=== PATIENT | male | born 1945 | race Caucasian/White ===

== ENCOUNTER 2017-03-06 06:37 | Observation (INO) | payer BC ==
[~2017-03-06] VITALS: Ht 172.7 cm; Wt 93.4 kg
[2017-03-06] VITALS (19 sets, daily range): BP systolic 105–180; BP diastolic 57–103; PULSE 52–74; RESP 11–26; Ht 172.7 cm; Wt 93.4 kg
[2017-03-06] MEDS ORDERED: LOSA50TA6 PO (07:37)
[2017-03-06] MEDS ORDERED: ISOS30TA5 PO (07:37)
[2017-03-06] MEDS ORDERED: CARV6.2579 PO (07:38)
[2017-03-06] MEDS ORDERED: TAMS0.4C2 PO (07:39)
[2017-03-06] MEDS ORDERED: ALLO100T PO (07:39)
[2017-03-06] MEDS ORDERED: GLIM2TAB PO (07:39)
[2017-03-06] MEDS ORDERED: ASPI-664 PO (07:40)
[2017-03-06] MEDS ORDERED: ATOR20TA38 PO (07:40)
[2017-03-06] MEDS ORDERED: SOD CHLORIDE 0.9% 1,000 ML IV SCH ×2 (08:30→10:28)
[2017-03-06 08:38] LABS: ADD SCAN DIFF NO
[2017-03-06 08:45] LABS: BASOPHIL # 0.1 10^3/ul (0.0-0.1); BASOPHILS % 0.7 % (0.0-2.0); EOSINOPHILS # 0.2 10^3/ul (0.0-0.5); EOSINOPHILS % 3.2 % (0.0-7.0); HEMATOCRIT 41.5 % (42.0-52.0); HEMOGLOBIN 13.6 g/dl (14.0-18.0); LYMPHOCYTES # 1.8 10^3/ul (0.8-2.9); LYMPHOCYTES % 24.3 % (15.0-51.0); MEAN CORPUSCULAR HEMOGLOBIN 29.9 pg (29.0-33.0); MEAN CORPUSCULAR HGB CONC 32.8 g/dl (32.0-37.0); MEAN CORPUSCULAR VOLUME 91.2 fl (82.0-101.0); MEAN PLATELET VOLUME 11.3 fl (7.4-10.4); MONOCYTE # 0.6 10^3/ul (0.3-0.9); MONOCYTES % 7.4 % (0.0-11.0); NEUTROPHIL # 4.7 10^3/ul (1.6-7.5); NEUTROPHILS % 63.7 % (39.0-77.0); PLATELET COUNT 160 10^3/UL (140-415); RED BLOOD COUNT 4.55 10^6/ul (4.70-6.10); RED CELL DISTRIBUTION WIDTH 12.5 % (11.5-14.5); WHITE BLOOD COUNT 7.4 10^3/ul (4.8-10.8)
[2017-03-06] MEDS ORDERED: HEPARIN 1000 UNITS/ML 10 ML INJ ONE (08:54)
[2017-03-06] MEDS ORDERED: HEPARIN 1000 UNITS/NS (A-LINE) 1,000 ML ONE (08:54)
[2017-03-06] MEDS ORDERED: IODIXANOL LOCM 100 ML BTL ONE ×2 (08:54→10:23)
[2017-03-06] MEDS ORDERED: VERAPAMIL 5 MG INJ ONE (08:54)
[2017-03-06] MEDS ORDERED: LIDOCAINE 1% (MDV) 20 ML INJ ONE (08:54)
[2017-03-06] MEDS ORDERED: FENTAnyl 50 MCG/ML VIAL ONE (08:55)
[2017-03-06] MEDS ORDERED: NITROGLYCERIN (IC) 100 MCG/ML INJ ONE (08:55)
[2017-03-06] MEDS ORDERED: MIDAZOLAM 1 MG/ML 2 ML INJ ONE (08:55)
--- NOTE | 2017-03-06 09:07 | RADRPT ---
PROCEDURE: XR Chest. CLINICAL INDICATION: Chest pain , preoperative TECHNIQUE: Single frontal view of the chest was obtained COMPARISON: None FINDINGS: The heart is enlarged. The thoracic aorta is calcified. The lungs are clear. There is no pleural effusion or pneumothorax. RPTAT: AA IMPRESSION: Mild cardiomegaly. Calcified aorta consistent with atherosclerotic disease. .Gerson Snell MD, MD Date Time Electronically viewed and signed by .Gerson Snell MD, on 03/06/2017 09:07 .S/
[2017-03-06 09:10] LABS: INR 1.04; PROTIME 13.6 Sec (12.2-14.2); PT RATIO 1.1
[2017-03-06 09:11] LABS: PARTIAL THROMBOPLASTIN TIME 25.1 Sec (25.0-35.0)
[2017-03-06 09:14] LABS: ALBUMIN 4.2 g/dl (3.3-4.9); ALBUMIN/GLOBULIN RATIO 1.68; BILIRUBIN,INDIRECT 0.4 mg/dl (0-1.1); BILIRUBIN,TOTAL 0.4 mg/dl (0.2-1.3); TOTAL PROTEIN 6.7 g/dl (6.1-8.1)
[2017-03-06 09:15] LABS: CREATININE 0.93 mg/dl (0.61-1.24); POTASSIUM 3.9 mmol/L (3.5-5.1)
[2017-03-06 09:16] LABS: CALCIUM 9.4 mg/dl (8.4-10.2)
[2017-03-06] MEDS ORDERED: ASPIRIN 325 MG TAB ONE (10:23)
[2017-03-06] MEDS ORDERED: CLOPIDOGREL 300 MG TAB ONE (10:23)
[2017-03-06] MEDS ORDERED: ZOLPIDEM 5 MG TAB PO PRN (10:30)
[2017-03-06] MEDS ORDERED: morphine 2 MG INJ IV PRN (10:30)
[2017-03-06] MEDS ORDERED: ONDANSETRON 4 MG INJ IV PRN (10:30)
[2017-03-06] MEDS ORDERED: AL HYDROX/MG HYDROX/SIMETH 30 ML CUP PO PRN (10:30)
[2017-03-06] MEDS ORDERED: OXYCODONE/ACETAMINOPHEN (5/325) TAB PO PRN (10:30)
[2017-03-06] MEDS ORDERED: ACETAMINOPHEN 325 MG TAB PO PRN (10:30)
[2017-03-06] MEDS ORDERED: hydrALAzine 20 MG INJ IV PRN (11:00)
[2017-03-06] MEDS ORDERED: hydrALAzine 20 MG INJ ONE (11:02)
[2017-03-06] MEDS ORDERED: GLUCOSE GEL 15 GRAM TUBE BUCCAL PRN (11:30)
[2017-03-06] MEDS ORDERED: DEXTROSE 50% 50 ML SYRINGE IV PRN ×2 (11:30)
[2017-03-06] MEDS ORDERED: GLUCAGON 1 MG INJ IM PRN (11:30)
[2017-03-06] MEDS ORDERED: GLUCOSE GEL 15 GRAM TUBE PO PRN ×2 (11:30)
[2017-03-06] MEDS: INSULIN ASPART [NOVOLOG] 3 ML PEN SC SCH ×3 (13:28→21:42)
--- NOTE | 2017-03-06 16:38 | RADRPT ---
Vent Rate: 61 bpm RR Interval: 0 msec [place] Interval: 280 msec QRS Duration: 104 msec QT Interval: 406 msec QTC Interval: 408 msec P-R-T [place]: 66 - -5 - 42 degrees Sinus rhythm with 1st degree AV block Otherwise normal ECG Electronically Signed By: Blane Curiel [id number]
--- NOTE | 2017-03-06 16:39 | RADRPT ---
Vent Rate: 60 bpm RR Interval: 0 msec [place] Interval: 286 msec QRS Duration: 96 msec QT Interval: 424 msec QTC Interval: 424 msec P-R-T [place]: 57 - -6 - 45 degrees Sinus rhythm with 1st degree AV block Septal infarct , age undetermined Abnormal ECG Electronically Signed By: Blane Curiel [id number]
[2017-03-06] MEDS ORDERED: INSULIN ASPART [NOVOLOG] 3 ML PEN SC SCH (17:35)
[2017-03-06] MEDS ORDERED: ATORVASTATIN 20 MG TAB PO SCH (21:00)
[2017-03-06] MEDS ORDERED: TAMSULOSIN (SR) 0.4 MG CAP PO SCH (21:00)
[2017-03-07] VITALS (8 sets, daily range): BP systolic 111–143; BP diastolic 58–82; PULSE 68–74; RESP 18
[2017-03-07] MEDS ORDERED: ACCU-CHEK XX SCH (02:00)
[2017-03-07] MEDS: INSULIN ASPART [NOVOLOG] 3 ML PEN SC SCH ×3 (08:18→18:00)
[2017-03-07 08:35] LABS: ADD SCAN DIFF NO
[2017-03-07 08:45] LABS: BASOPHILS % 0.4 % (0.0-2.0); EOSINOPHILS # 0.2 10^3/ul (0.0-0.5); EOSINOPHILS % 2.7 % (0.0-7.0); HEMOGLOBIN 14.2 g/dl (14.0-18.0); LYMPHOCYTES # 0.9 10^3/ul (0.8-2.9); LYMPHOCYTES % 12.5 % (15.0-51.0); MEAN CORPUSCULAR HEMOGLOBIN 29.5 pg (29.0-33.0); MEAN CORPUSCULAR HGB CONC 32.3 g/dl (32.0-37.0); MEAN CORPUSCULAR VOLUME 91.5 fl (82.0-101.0); MEAN PLATELET VOLUME 11.4 fl (7.4-10.4); MONOCYTE # 0.8 10^3/ul (0.3-0.9); MONOCYTES % 10.3 % (0.0-11.0); NEUTROPHIL # 5.4 10^3/ul (1.6-7.5); NEUTROPHILS % 73.7 % (39.0-77.0); PLATELET COUNT 160 10^3/UL (140-415); RED BLOOD COUNT 4.81 10^6/ul (4.70-6.10); RED CELL DISTRIBUTION WIDTH 12.5 % (11.5-14.5); WHITE BLOOD COUNT 7.3 10^3/ul (4.8-10.8)
[2017-03-07] MEDS ORDERED: ASPIRIN (EC) 325 MG TAB PO SCH (09:00)
[2017-03-07] MEDS ORDERED: LOSARTAN 50 MG TAB PO SCH (09:00)
[2017-03-07] MEDS ORDERED: ISOSORBIDE MONONITRATE(SR)30 MG TAB PO SCH (09:00)
[2017-03-07] MEDS ORDERED: CLOPIDOGREL 75 MG TAB PO SCH (09:00)
[2017-03-07] MEDS ORDERED: ALLOPURINOL 100 MG TAB PO SCH (09:00)
[2017-03-07 09:18] LABS: CALCIUM 9.1 mg/dl (8.4-10.2); CREATININE 1.01 mg/dl (0.61-1.24); POTASSIUM 4.1 mmol/L (3.5-5.1)
--- NOTE | 2017-03-07 14:01 | RADRPT ---
Vent Rate: 75 bpm RR Interval: 0 msec [place] Interval: 292 msec QRS Duration: 96 msec QT Interval: 370 msec QTC Interval: 413 msec P-R-T [place]: 61 - 4 - 43 degrees Sinus rhythm with 1st degree AV block Septal infarct , age undetermined Abnormal ECG Electronically Signed By: Blane Curiel [id number]
--- NOTE | 2017-03-07 17:01 | CONS ---
Date/Time of Note Date/Time of Note DATE: 03/07/17 TIME: 16:57 Assessment/Plan Assessment/Plan Chief Complaint/Hosp Course IMP: 1.POD#1 s/p PTCa/stent x 1 to LAD with MAE 2.abnl cardiac stress test-prior to stent 3.HTN 5.HL 6.DM 7.chest pain/PHIPPS-prior to PTCA/stent REcc: -Tele -continue asa/plavix -Contineu imdur/losartan/coreg -Continue statin -D/C planning with outpatient f/u 2 weeks -prescription for asa 325 and plavix 75 mg daily Problems: Consultation Date/Type/Reason Admit Date/Time Mar 06, 2017 at 18:40 Initial Consult Date 03/06/2017 Type of Consultation: Cardiology Reason for Consultation angina s/p pTCA/stent to LAD Referring Provider: CATHIE ANDERSON MD Exam/Review of Systems Vital Signs Vitals Vital Signs Date Time Temp Pulse Resp B/P Pulse Ox O2 Delivery O2 Flow Rate FiO2 03/07/17 16:22 70 03/07/17 15:52 98.0 18 111/70 95 03/07/17 04:00 Room Air Intake and Output 03/06/17 03/06/17 03/07/17 15:00 23:00 07:00 Intake Total 300 ml 875 ml 720 ml Output Total 750 ml 300 ml Balance -450 ml 575 ml 720 ml Exam Review of Systems: CONSTITUTIONAL: No fevers, chills. PULMONARY: No sob CARDIOVASCULAR: No chest pain/palpitations GASTROINTESTINAL: No nausea/vomiting. GENITOURINARY: No hematuria/dysuria. MUSCULOSKELETAL: No myagias/arthalgias. PSYCHIATRIC: The patient denies depression. NEUROLOGIC: No weakness Constitutional: alert, oriented Psych: no complaints Head: normocephalic ENMT: mucosa pink and moist Neck: jvd (8 cm water), supple Respiratory: diminished breath sounds (at bases/B) Cardiovascular: regular rate and rhythm Gastrointestinal: non-tender, soft Musculoskeletal: muscle tone (normal) Extremities: edema (none) Neurological: other (No focal deficits) Results Result Diagram: 03/07/17 0742 03/07/17 0742 Results 24 hrs Laboratory Tests Test 03/06/17 17:51 03/06/17 21:36 03/07/17 02:19 03/07/17 07:42 Bedside Glucose 195 273 H 194 White Blood Count 7.3 Red Blood Count 4.81 Hemoglobin 14.2 Hematocrit 44.0 Mean Corpuscular Volume 91.5 Mean Corpuscular Hemoglobin 29.5 Mean Corpuscular Hemoglobin Concent 32.3 Red Cell Distribution Width 12.5 Platelet Count 160 Mean Platelet Volume 11.4 H Neutrophils % 73.7 Lymphocytes % 12.5 L Monocytes % 10.3 Eosinophils % 2.7 Basophils % 0.4 Nucleated Red Blood Cells % 0.0 Neutrophils # 5.4 Lymphocytes # 0.9 Monocytes # 0.8 Eosinophils # 0.2 Basophils # 0.0 Nucleated Red Blood Cells # 0.0 Sodium Level 135 Potassium Level 4.1 Chloride Level 103 Carbon Dioxide Level 22 Anion Gap 14 Blood Urea Nitrogen 18 Creatinine 1.01 Glucose Level 219 Calcium Level 9.1 Test 03/07/17 08:12 03/07/17 12:36 Bedside Glucose 171 311 H Medications Medications Current Medications Aspirin (Ecotrin) 325 mg DAILY PO Last administered on 03/07/17 08:16; Admin Dose 325 MG; Start 03/07/17 at 09:00 Clopidogrel Bisulfate (plaVIX) 75 mg DAILY PO Last administered on 03/07/17 08 :17; Admin Dose 75 MG; Start 03/07/17 at 09:00 Acetaminophen (Tylenol Tab) 650 mg Q4H PRN PO NON-CARDIAC PAIN LEVEL 1-3; Start 03/06/17 at 10:30 Oxycodone/ Acetaminophen (Percocet (5/ 325)) 1 tab Q4H PRN PO REPORTED NON- CARDIAC PAIN 4-7; Start 03/06/17 at 10:30 Morphine Sulfate (morphine) 1 mg Q1H PRN IV PAIN NOT RELIEVED BY OTHERS; Start 03/06/17 at 10:30 Al Hydrox/Mg Hydrox/Simethicone (Mag-Al Plus) 30 ml Q4H PRN PO GASTROINTESTINAL UPSET; Start 03/06/17 at 10:30 Ondansetron HCl (Zofran Inj) 4 mg Q4H PRN IV NAUSEA AND/OR VOMITING; Start at 10:30 Hydralazine HCl (Apresoline) 10 mg Q4H PRN IV ELEVATED SYSTOLIC BP Last administered on 03/06/17 11:19; Admin Dose 10 MG; Start 03/06/17 at 11:00 Miscellaneous Information 1 ea NOTE XX ; Start 03/06/17 at 11:30 Glucose (Glutose) 15 gm Q15M PRN PO DECREASED GLUCOSE; Start 03/06/17 at 11:30 Glucose (Glutose) 22.5 gm Q15M PRN PO DECREASED GLUCOSE; Start 03/06/17 at 11: 30 Dextrose (D50w Syringe) 25 ml Q15M PRN IV DECREASED GLUCOSE; Start 03/06/17 at 11:30 Dextrose (D50w Syringe) 50 ml Q15M PRN IV DECREASED GLUCOSE; Start 03/06/17 at 11:30 Glucagon (Glucagen) 1 mg Q15M PRN IM DECREASED GLUCOSE; Start 03/06/17 at 11:30 Glucose (Glutose) 15 gm Q15M PRN BUCCAL DECREASED GLUCOSE; Start 03/06/17 at 11 :30 Allopurinol (Zyloprim) 100 mg DAILY PO Last administered on 03/07/17 08:17; Admin Dose 100 MG; Start 03/07/17 at 09:00 Atorvastatin Calcium (Lipitor) 20 mg QHS PO Last administered on 03/06/17 21: 32; Admin Dose 20 MG; Start 03/06/17 at 21:00 Isosorbide Mononitrate (Imdur) 30 mg DAILY PO Last administered on 03/07/17 08 :17; Admin Dose 30 MG; Start 03/07/17 at 09:00 Losartan Potassium (Cozaar) 50 mg DAILY PO Last administered on 03/07/17 08:16 ; Admin Dose 50 MG; Start 03/07/17 at 09:00 Tamsulosin HCl (Flomax) 0.4 mg HS PO Last administered on 03/06/17 21:32; Admin Dose 0.4 MG; Start 03/06/17 at 21:00 Diagnostic Test (Pha) (Accu-Chek) 1 ea 02 XX Last administered on 03/07/17 02: 20; Admin Dose 1 EA; Start 03/07/17 at 02:00 Carvedilol (Coreg) 3.125 mg BID PO Last administered on 03/07/17 08:16; Admin Dose 3.125 MG; Start 03/06/17 at 21:34 ROSE HARRIS 14, 2017 17:01
[2017-03-07] MEDS ORDERED: CLOP75TA28 PO (17:14)
[2017-03-07] MEDS ORDERED: ASPI-664 PO (17:14)
--- NOTE | 2017-03-09 21:05 | DS ---
Date/Time of Note Date/Time of Note DATE: 03/09/17 TIME: 21:03 Discharge Summary Admission/Discharge Info Admit Date/Time Mar 06, 2017 at 18:40 Discharge Date/Time Mar 07, 2017 at 19:46 Patient Condition: Good Hospital Course 1.Unstable angina, s/p PTCa/stent x 1 to LAD with MAE 2.abnl cardiac stress test-prior to stent 3.HTN 5.HL 6.DM 7.chest pain/PHIPPS-prior to PTCA/stent -Contineu imdur/losartan/coreg -Continue statin -D/C planning with outpatient f/u 2 weeks -prescription for asa 325 and plavix 75 mg daily Home Meds Active Scripts Clopidogrel Bisulfate (Clopidogrel) 75 Mg Tablet, 75 MG PO DAILY for 30 Days, TAB Prov:FIDENCIO CASTELLNAOS 03/07/17 Aspirin (Low Dose Aspirin) 81 Mg Tablet.dr, 81 MG PO DAILY, #30 TAB Prov:FIDENCIO CASTELLANOS 03/07/17 Reported Medications Atorvastatin Calcium* (Atorvastatin Calcium*) 20 Mg Tablet, 20 MG PO QHS, #30 TAB 03/06/17 Tamsulosin Hcl* (Tamsulosin Hcl*) 0.4 Mg Cap.er.24h, 0.4 MG PO HS, CAP 03/06/17 Allopurinol* (Allopurinol*) 100 Mg Tablet, 100 MG PO DAILY, TAB 03/06/17 Glimepiride* (Glimepiride*) 2 Mg Tablet, 2 MG PO WITH BREAKFAST, TAB 03/06/17 Carvedilol* (Carvedilol*) 6.25 Mg Tablet, 6.25 MG PO BID, #60 TAB 03/06/17 Isosorbide Mononitrate* (Isosorbide Mononitrate*) 30 Mg Tab.er.24h, 30 MG PO DAILY, TAB 03/06/17 Losartan Potassium* (Losartan Potassium*) 50 Mg Tablet, 50 MG PO DAILY, TAB 03/06/17 Follow-up Plan f/up with Dr Ramsey in 1-2 weeks. Primary Care Provider Lesly Aguirre Time spent on discharge: > 30 minutes FIDENCIO CASTELLANOS Mar 09, 2017 21:04
--- NOTE | 2017-03-10 04:06 | HP ---
DATE OF ADMISSION: 03/06/2017 HISTORY OF PRESENT ILLNESS: The patient is a 72-year-old gentleman with a history of coronary artery disease status post SD, was seen by Dr. Serge Claros as an outpatient for cardiology standpoint. The patient underwent Lexiscan stress test which was positive for anterior ischemia. The patient was subsequently referred to Marissa Ramsey and he brought the patient to [facility] today and the patient was taken to cardiac catheterization technologist and was noted to have obstructive coronary disease and a detailed cardiac report is pending. The patient did undergo PCI and stenting of LAD. The patient is currently chest pain free. The patient denies any resting pain in the lower extremity, denies any headache. No reported recent dizziness. No reported focal weakness. No reported fever or chills. REVIEW OF SYSTEMS: The rest of the review of systems were unremarkable. PAST SURGICAL HISTORY: The patient is status post cholecystectomy. PAST MEDICAL HISTORY: Also significant for SD in 2010, data is not available. Also has a history of SOCIAL HISTORY: Exsmoker. The patient used to smoke a pack a day and smoked more than 20 years. Quit 20 years ago. Alcohol use: None. PHYSICAL EXAMINATION: GENERAL APPEARANCE: The patient is conscious, awake, alert. VITAL SIGNS: Temperature 98.7, pulse 65, respirations 18, blood pressure 152/86, O2 sat 98 on room air. HEENT: Oropharynx clear. NECK: Supple. No thyromegaly. LUNGS: Chest clear to auscultation. CARDIAC: S1, S2 normal. No murmur. ABDOMEN: Soft, nontender, nondistended. Bowel sounds present. EXTREMITIES: No leg edema. NEUROLOGIC: The patient is awake, alert. No gross focal deficits although exam was rather limited due to recent cardiac cath. IMPRESSION: 1. Coronary disease status post myocardial infarction in 2010, status post abnormal nuclear stress test and status post PCI and stenting of LAD. 2. Hypertension. 3. Diabetes mellitus. 4. Dyslipidemia. PLAN: The patient admitted in ICU and will be continued on IV fluids, aspirin, Plavix, Flomax, Lipitor, Isordil, losartan. Will hold off on Amaryl. Will continue allopurinol. I will also decrease the dose of carvedilol to 3.125 b.i.d. as the patient's heart rate did drop as low as 52. Will continue to monitor him closely. Labs done this morning: WBC 7.4, hemoglobin 13.6, platelets 160. Chemistry: Sodium 136, potassium 3.9, BUN 25, creatinine 0.9. Last blood glucose 161. normal. Will continue to follow from a medical standpoint. Dictated By: Calvin Jackson MD /renata/sal /Document#: [id number]
--- NOTE | 2017-03-15 11:52 | CARRPT ---
DATE OF PROCEDURE: 03/06/2017 TYPE OF PROCEDURE: 1. Left heart catheterization. 2. Coronary angiography. 3. Percutaneous transluminal coronary angioplasty with placement of Resolute drug-eluting stent x1 to mid distal left anterior descending, 2.5 x 14 mm. 4. Measurement of left end-diastolic pressure. 5. 60 minutes of moderate conscious sedation. ATTENDING PHYSICIAN: Dr. Irvin Ramsey. REFERRING PHYSICIAN: Dr. Serge Claros. ANESTHESIA: Conscious and local. INDICATION: Chest pain refractory to medical therapy with positive stress test findings for anterior ischemia, high risk for myocardial infarction. BRIEF HISTORY: Mr. aVlentine is 72-year-old with history of hypertension, dyslipidemia, diabetes mellitus, positive tobacco and complaint of dyspnea on exertion. He underwent a cardiac stress test revealing anterior ischemia. Given these findings, patient was placed on therapy. He is having chest pain. He is now brought to the cardiac paving and surfacing labourer in order to assess for the possibilities of significant coronary artery disease, status post chest pain, and subsequent problems with stress test findings. PROCEDURE: After informed consent was obtained, patient was brought to the [facility] Cardiac Roofing Machine Tender where his right radial area was prepped in sterile fashion. 2 percent lidocaine was infiltrated into the right radial area until he achieved adequate anesthesia. Using the modified Seldinger technique, the radial artery was cannulated and a 6- Jordanian arterial sheath was placed. Subsequently, a 6-Jordanian JL3.5 catheter was used to catheterize the left main coronary artery ostium. With contrast injection, multiple views of the left coronary artery were obtained. JL3.5 guidewire and a JR4 were used to catheterize the right coronary artery ostium. With contrast injection, multiple views of the right coronary artery were obtained. JR4 was removed over the guidewire and a 6-Jordanian pigtail was passed down the ascending aorta into LV. Left ventricular pressure measured. Pullback across the aortic valve successfully , removed. Subsequently at this time, we moved directly into an interventional procedure. Patient was given an additional 3000 units of heparin in order to achieve adequate pre-interventional ACT. A Q3, 6-Jordanian guide was used to cath the left main coronary ostium and a 0.014 guidewire was passed distal to the lesion in the distal LAD. The lesion was pretreated with a 2.0 x 8 mm balloon up to 14 atmospheres x2. The balloon was removed and the lesion was fitted with a 2.25 x 14 mm Resolute drug-eluting stent inflated at 12 atmospheres, post dilated with the stent delivery system up to 12 atmospheres. was obtained, revealing excellent result. Following the stent, GILMA-3 flow throughout the vessel. No signs of complication including perforation or dissection. Subsequently at this time, patient's interventional guidewire removed. Patient's sheath was removed. A TR band was applied. This completed the procedure. There were no known complications. FINDINGS: 1. Coronary angiography: Left main, 4 mm, no significant stenoses. Circumflex proximally is a 3.5 mm vessel and becomes a very ectatic vessel in its mid portion. It has a mid body 50 percent stenosis, just at the takeoff of the circumflex continuation/AV groove. Just at that point, the obtuse marginal branches are very ectatic vessels up to approximately 4 mm in size with a 50 percent stenosis proximally and there is an additional mid branching obtuse marginal subcentimeter vessel with a mid body 40 percent stenosis. The LAD proximally is a 3 mm vessel and in its proximal portion has a 50 percent stenosis. Ostial portion has 50 percent stenosis. In the mid portion of the LAD, there is a distal area that is an ectatic vessel and a 50 percent stenosis in the mid portion of this. In the mid distal portion of the vessel, there is a very focal 80 percent to 90 percent stenosis. Thereafter, the LAD does round the apex and the proximal branch of the diagonal 1, distal branch of diagonal, each are a 2 mm vessel with no significant focal stenosis. The right coronary artery proximally is a 3.5 mm vessel and has a 40 percent stenosis in its mid portion. In the distal portion, the vessel becomes an ectatic vessel with flow characteristics. A vessel gives off a 2.5 mm PDA with a mid body 50 percent stenosis and a 2.5 mm posterolateral branch which has an ectatic area and then a branch which becomes a very short territory, severe ectopic involvement and has an ostial 90 percent stenosis. 2. Left end-diastolic pressure of 32/34. No significant gradient seen. PTCA AND STENT PLACEMENT: Prior to PTCA and stent placement, the patient had a mid body 80 percent to 90 percent stenosis, status post successful PTCA and stent placement. No evidence of stenosis. A moderate stepdown and no signs of complications including . TOTAL PHOTON TIME: 9 minutes. TOTAL CONTRAST: 4 cc. IMPRESSION: 1. successful with 2 areas of in the distal left anterior descending with successful percutaneous transluminal coronary angioplasty and stent placement x1 with drug-eluting stent, 2.25 x 14 mm and in a small posterolateral branch somewhat insignificant. 2. Elevated left heart filling pressures. 3. No significant gradient. RECOMMENDATIONS: 1. Would maintain patient on Plavix 75 mg 1 tab p.o. daily indefinitely. 2. Aspirin 60 mg p.o. daily indefinitely. 3. Maximize medical management. 4. Risk factor reduction. 5. Patient will be admitted to ICU for observation, team management including symptoms, with possible discharge the following day. ADDENDUM: At the completion of the procedure, patient received 600 mg of p.o. Plavix and 325 mg of aspirin. Dictated By: Terrance Madera /renata/dougie /Document#: [id number] CC: Serge Claros MD;*End*
== END 2017-03-07 19:46 | disposition home or self-care (01) ==
LOC: SDS 06:37 → ICU 11:35 → MS4 18:40 → INTOOBSV 18:40 → SDS 18:40
PROVIDERS: ADMIT Internal Medicine; ATTEND Internal Medicine
DX: I25.110 Atherosclerotic heart disease of native coronary artery with unstable angina pectoris (principal); Z95.5 Presence of coronary angioplasty implant and graft; I10 Essential (primary) hypertension; E78.5 Hyperlipidemia, unspecified; E11.9 Type 2 diabetes mellitus without complications; Z90.49 Acquired absence of other specified parts of digestive tract; I25.2 Old myocardial infarction; Z87.891 Personal history of nicotine dependence
CPT/HCPCS: 71010; 80048; 80053; 82962; 84484; 85025; 85610; 85730; 87081; 92921; 92928; 93005; 93458; C1725; C1769; C1876; C1887; J0360; J1644; J1815; J2250; J3010; Q9967; Z7500; Z7610; 99217; G0378

== ENCOUNTER 2017-09-12 06:38 | Day surgery (SDC) | END 2017-09-12 11:06 | disposition home or self-care (01) ==